=== PATIENT | male | born 1935 | race Caucasian/White ===

== ENCOUNTER 2017-11-25 00:07 | Emergency (ER) | payer MEDICARE, OTHER ==
[2017-11-25 00:26] VITALS: PULSE 71
[2017-11-25 01:05] LABS: BASO # 0.1 K/uL (0.0-0.2); BASO % 1.3 % (0.0-2.0); EOS # 0.1 K/uL (0.0-0.7); EOS % 2.9 % (0.0-4.0); LYMPH # 1.4 K/uL (1.0-4.3); LYMPH % 29.2 % (20.0-40.0); MEAN CELL VOLUME 90.7 fL (80.0-94.0); MEAN CORPUSCULAR HEMOGLOBIN 30.1 pg (27.0-31.0); MEAN CORPUSCULAR HGB CONC 33.2 g/dL (33.0-37.0); MEAN PLATELET VOLUME 9.9 fL (7.2-11.7); MONO # 0.5 K/uL (0.0-0.8); MONO % 9.8 % (0.0-10.0); NEUT # 2.8 K/uL (1.8-7.0); NEUT % 56.8 % (50.0-75.0); RED CELL DISTRIBUTION WIDTH 14.5 % (11.5-14.5); WHITE BLOOD COUNT 4.9 K/uL (4.8-10.8)
--- NOTE | 2017-11-25 01:05 | C.PDOC ---
History Of Present Illness 82yo male, with history of hypertension, presents to ER for evaluation of a skin rash to his right forearm. Patient states the rash started as small red areas and now there are two target-like lesions on his right forearm. Patient has a history of psoriasis, and used a steroid cream on the rash with no improvements. He denies use of new medications, clothing, food, lotions or soap. Patient also denies any bug bites, fever, chills and offers no other medical complaints. PMD: Biju Johnson Time Seen by Provider: 11/25/17 00:40 Chief Complaint (Nursing): Abnormal Skin Integrity History Per: Patient History/Exam Limitations: no limitations Onset/Duration Of Symptoms: Days Current Symptoms Are (Timing): Still Present Location Of Injury: Right: Forearm Quality Of Symptoms: Itching. denies: Painful Additional History Per: Patient Past Medical History Reviewed: Historical Data, Nursing Documentation, Vital Signs Vital Signs: Last Vital Signs Temp 97.6 F 11/25/17 03:12 Pulse 71 11/25/17 03:12 Resp 20 11/25/17 03:12 BP 164/70 H 11/25/17 03:12 Pulse Ox 98 11/25/17 03:12 - Medical History PMH: HTN Surgical History: CABG (quadruple) - [facility] Procedures CL REDUC DISLOC-SHOULDER (07/13/14) Family History: States: Unknown Family Hx - Social History Hx Tobacco Use: No Hx Alcohol Use: No Hx Substance Use: No Review Of Systems Except As Marked, All Systems Reviewed And Found Negative. Constitutional: Negative for: Fever, Chills Cardiovascular: Negative for: Chest Pain Respiratory: Negative for: Shortness of Breath Skin: Positive for: Rash (bilateral arms) Physical Exam - Physical Exam Appears: Non-toxic, No Acute Distress Skin: Warm, Dry, Other (multiple raised, erythematous lesions noted to left forearm and right forearm. There are 2 distintly target like lesions, larger one 4cm in diameter and smaller on 2cm in diameter on right forearm. No tenderness noted.) Head: Atraumatic, Normacephalic Eye(s): bilateral: Normal Inspection Oral Mucosa: Moist Neck: Normal ROM, Supple Chest: Symmetrical Cardiovascular: Rhythm Regular Respiratory: Normal Breath Sounds Neurological/Psych: Oriented x3 ED Course And Treatment - Laboratory Results Result Diagrams: 11/25/17 01:00 05/26/18 01:00 O2 Sat by Pulse Oximetry: 97 (RA) Pulse Ox Interpretation: Normal Progress Note: Benadryl 25mg PO and Solumedrol 125mg IV given. Labs ordered. Case discussed with Dr. Martines, ED attending who is agreeable with plan of care. 0120 Labs reviewed and shows no clinically significant abnormalities. 0250 ON reevaluation patient is resting in room and is in no acute distress. He is awake, alert and oriented x 3, heart and lung sounds are normal. Patient is stable for discharge home; isntructed to take medications as prescribed and to follow up with PMD and mine expert within 2-3 days. Disposition - Disposition Referrals: Jero Hannon MD [Staff Provider] - Fredy Casiano MD [Staff Provider] - Lester Rader MD [Medical Doctor] - Leela Herr [Staff Provider] - Disposition: HOME/ ROUTINE Disposition Time: 03:04 Condition: STABLE Additional Instructions: Follow up with your PMD and Clinical Haematologist within 1-2 days. Return to ED if feel worse. Prescriptions: hydrOXYzine HCl [Atarax] 25 mg PO Q6H #30 tab Methylprednisolone [Medrol] 4 mg PO DAILY #42 tab Instructions: Erythema Multiforme Forms: [employer] (Japanese) - Clinical Impression Clinical Impression: Erythema multiforme - PA / DYED YARN OPERATOR / Resident Statement MD/DO has reviewed & agrees with the documentation as recorded. - Scribe Statement The provider has reviewed the documentation as recorded by the Scribe (Marcella Murillo) Provider Attestation: All medical record entries made by the Scribe were at my direction and personally dictated by me. I have reviewed the chart and agree that the record accurately reflects my personal performance of the history, physical exam, medical decision making, and the department course for this patient. I have also personally directed, reviewed, and agree with the discharge instructions and disposition.
[2017-11-25 01:17] LABS: ALB/GLOB RATIO 1.2 (1.0-2.1); ALBUMIN 4.1 g/dL (3.5-5.0); AST/SGOT 35 U/L (17-59); BLOOD UREA NITROGEN 34 mg/dL (9-20); CALCIUM 9.4 mg/dl (8.6-10.4); GFR AFRICAN-AMERICAN > 60; GFR NON-AFRICAN AMERICAN 53
[2017-11-25 01:18] LABS: PROTHROMBIN TIME 11.1 SECONDS (9.7-12.2)
[2017-11-25 01:20] LABS: ALT/SGPT < 6 U/L (21-72)
[2017-11-25 03:12] VITALS: BP 164/70; RESP 20; TEMP 97.6
[2017-11-25 03:37] VITALS: O2SAT 97
== END 2017-11-25 03:12 | disposition home or self-care (01) ==
LOC: C.ER 00:07
DX: L51.9 Erythema multiforme, unspecified (principal); I10 Essential (primary) hypertension
CPT/HCPCS: 80053; 85025; 85610; 85730; 96374; 99284; J2930